=== PATIENT | male | born 1960 | race Caucasian/White ===

== ENCOUNTER 2023-08-16 00:33 | Emergency (ER) | payer BC, OTHER ==
[2023-08-16 00:41] VITALS: BP 133/82; PULSE 75; RESP 18; TEMP 97.6; BMI 25.8
[2023-08-16] MEDS ORDERED: ONDANSETRON 4 MG/2 ML VIAL ONE (00:49)
[2023-08-16] MEDS: SODIUM CHLORIDE 1,000 ML IV ONE (01:09)
[2023-08-16] MEDS: SODIUM CHLORIDE 1,000 ML IV SCH (01:10)
[2023-08-16] MEDS: ONDANSETRON 4 MG/2 ML VIAL IVPB ONE (01:10)
[2023-08-16 01:33] LABS: HEMATOCRIT 39.3 % (35.4-49); HEMOGLOBIN 13.5 GM/dL (11.7-16.9); MCH 29.4 pg (25.7-33.7); MCHC 34.2 g/dl (32.0-35.9); MEAN CELL VOLUME 85.8 fl (80-96); PLATELET COUNT 256 10^3/uL (134-434); RBC 4.58 M/mm3 (4.00-5.60); RDW 13.1 % (11.9-15.9); WHITE BLOOD COUNT 11.7 K/mm3 (4.0-10.0)
[2023-08-16 01:56] LABS: ALBUMIN 3.8 g/dl (3.4-5.0); CALCIUM 9.3 mg/dL (8.5-10.1)
[2023-08-16 02:01] LABS: BILIRUBIN,TOTAL 0.4 mg/dL (0.2-1); TOT PROT 6.8 g/dl (6.4-8.2)
== END 2023-08-16 03:48 | disposition home or self-care (01) ==
LOC: FER 00:33
PROC: 3E030GC Introduction of Other Therapeutic Substance into Peripheral Vein, Open Approach (ICD-10-PCS; principal; 2023-08-16)
PROC: 3E0337Z Introduction of Electrolytic and Water Balance Substance into Peripheral Vein, Percutaneous Approach (ICD-10-PCS; 2023-08-16)
DX: R11.2 Nausea with vomiting, unspecified (principal); R42 Dizziness and giddiness
CPT/HCPCS: 36415; 80053; 85027; 99284-25